=== PATIENT | male | born 1985 | race Caucasian/White ===

== ENCOUNTER 2020-11-06 13:11 | Emergency (ER) | payer OTHER ==
[~2020-11-06] VITALS: Ht 190.5 cm; Wt 80.7 kg
[~2020-11-06 13:11] MED LIST: ATIVAN1 MG PO; BACTRIM DS TAB1 EACH PO; NOHOMEMEDICATIONS; NORCO 5-325 TA1 EACH PO; PHENERGAN 25 MG25 M1 PO; PROMETHAZINE12.5 M1 PO; PROTONIX 20 MG20 M1 PO
[2020-11-06 13:22] VITALS: BP 135/81
[2020-11-06] MEDS ORDERED: NORCO5 PO (14:21)
[2020-11-06] MEDS ORDERED: IBUPROFEN 600600 M1 PO (14:21)
== END 2020-11-06 14:29 | disposition home or self-care (01) ==
LOC: M.ERS 13:11
DX: S62.665A Nondisplaced fracture of distal phalanx of left ring finger, initial encounter for closed fracture (principal); F17.210 Nicotine dependence, cigarettes, uncomplicated; Z98.890 Other specified postprocedural states; Z88.5 Allergy status to narcotic agent; W22.8XXA Striking against or struck by other objects, initial encounter; Y93.89 Activity, other specified; Y92.89 Other specified places as the place of occurrence of the external cause; Y99.8 Other external cause status